=== PATIENT | female | born 1975 | race African-American/Black ===

== ENCOUNTER 2017-03-10 08:09 | Emergency (ER) | payer SELFPAY ==
[~2017-03-10 08:09] MED LIST: ALBU6.7H INH; CIPR500T2 PO; IBUP800T23 PO; LAMI250T PO; Z.0.NO CURRENT MEDS
[2017-03-10 08:12] VITALS: BP 132/87; PULSE 90; RESP 14; TEMP 98.2; O2SAT 100
[2017-03-10] MEDS ORDERED: MOME17I EACH NARE (08:44)
[2017-03-10] MEDS ORDERED: ROBA500T PO (08:44)
[2017-03-10] MEDS ORDERED: IBUP800T23 PO (08:44)
[2017-03-10] MEDS ORDERED: AMOX500C PO (08:44)
--- NOTE | 2017-03-10 08:44 | PD ---
HPI Chief Complaint: Back/ Neck Pain or Injury Time Seen by Provider: 08:41 Travel History International Travel<30 days: No Contact w/Intl Traveler<30days: No Traveled to known affect area: No History of Present Illness HPI 41-year-old female presents to the emergency Department with multiple complaints. First complaint of nasal congestion, sinus pressure 1 week. Reports bilateral ear pressure. Denies cough. Denies fever, vomiting. Second complaint is right lower tooth pain that also started about a week ago. Says the tooth cracked about a month ago. Denies facial edema or erythema. Third complaint is left lateral neck stiffness she woke with on Wednesday morning. Denies injury. Denies paresthesias, loss of sensation, decreased range of motion, decreased mental extremities. Denies headache, lightheadedness, dizziness. Has been taking Advil and Zyrtec for symptom management. Has no other medical complaints. No known allergies. No other modifying factors or associated signs and symptoms. PFSH Past Medical History Diminished Hearing: No ?: Not LMP: 02/07/17 : 8 Para: 1 Past Surgical History Gynecologic Surgery: Yes (D&C) Other Surgery: Yes (LYMPH NODE REMOVED) Social History Alcohol Use: Yes (SOCIALLY) Tobacco Use: Yes (4-6 CIGS DAILY) Substance Use: No Allergies-Medications (Allergen,Severity, Reaction): Coded Allergies: No Known Allergies (Verified , 03/10/17) Reported Meds & Prescriptions Reported Meds & Active Scripts Active Nasonex Nasal [place] (Mometasone Furoate) 50 Mcg/Act Naspr 2 [place] EACH NARE DAILY PRN Amoxicillin 500 Mg Cap 500 Mg PO BID 10 Days Ibuprofen 800 Mg Tab 800 Mg PO Q6HR PRN Robaxin (Methocarbamol) 500 Mg Tab 500 Mg PO QID PRN Review of Systems Except as stated in HPI: all other systems reviewed are Neg Physical Exam Narrative GENERAL: Well-nourished, well-developed female patient, in no acute distress; afebrile, nontoxic-appearing SKIN: Warm and dry. No rash. HEAD: Atraumatic. Normocephalic. Frontal and maxillary sinus tenderness on palpation. No facial edema or erythema. No lymphadenopathy or tenderness on palpation. EYES: Pupils equal and round at 3 mm with brisk reaction. No scleral icterus. No injection or drainage. PERRLA. ENT: Mucosa pink and moist. Oropharynx without erythema, exudates, tonsillar edema.. No uvular edema. No uvular, palatal, or tonsillar deviation. Airway patent. EARS: Bilateral pinnae and external canals appear within normal limits. Bilateral tympanic membranes without erythema, dullness or perforation. MOUTH: Mucous membranes moist, no lesions, tongue and gums appear normal. Right lower tooth #29 with large dental cavity and tenderness on palpation; surrounding gingiva is without erythema, edema, drainage, obvious abscess. NECK: Moving freely. Trachea midline. No lymphadenopathy. No midline point tenderness on palpation of the cervical spine. Active rotation greater than 45 to left and right. Reproducible tenderness to the left lateral musculature of the trapezius muscle of the neck and down to the upper shoulder area. CARDIOVASCULAR: Regular rate and rhythm. No murmur appreciated. RESPIRATORY: No accessory muscle use. Clear to auscultation. Breath sounds equal bilaterally. GASTROINTESTINAL: Abdomen soft, non-tender, nondistended. Hepatic and splenic margins not palpable. Bowel sounds are active 4 quadrants. MUSCULOSKELETAL: No obvious deformities. No clubbing. No cyanosis. No edema. NEUROLOGICAL: Awake and alert. Oriented 3. No obvious cranial nerve deficits. Motor grossly within normal limits. Normal speech. Moves all extremities. 5/5 strength to all extremities. PSYCHIATRIC: Appropriate mood and affect; insight and judgment normal. Data Data Last Documented VS Vital Signs Date Time Temp Pulse Resp B/P Pulse Ox O2 Delivery O2 Flow Rate FiO2 03/10/17 08:12 98.2 90 14 132/87 100 Orders Methocarbamol (Robaxin) (03/10/17 08:45) Ibuprofen (Motrin) (03/10/17 08:45) [facility] Medical Decision Making Medical Screen Exam Complete: Yes Emergency Medical Condition: Yes Medical Record Reviewed: Yes Differential Diagnosis Sinusitis, dentalgia, dental cavity, stiff neck Narrative Course 41-year-old female physical exam and history of present illness consistent with sinusitis, dentalgia, dental cavity, and left lateral neck stiffness. Patient is afebrile and nontoxic appearing. Ibuprofen and Robaxin administered in the ER. Amoxicillin, nasal Nasal spray, Robaxin, ibuprofen prescribed for home. Patient provided emergency dental information sheet for follow-up. Instructed patient to follow up with dentist. Patient verbalizes understanding and agreement with treatment plan. Patient is medically cleared and stable for discharge. Discussed reasons to return to the emergency department. Instructed patient to follow up with primary care provider. Patient agrees with treatment plan. The patients vital signs are stable and the patient is stable for outpatient follow-up and treatment. Patient discharged home, stable and in no acute distress. Diagnosis Primary Impression: Sinusitis Qualified Code: J32.9 - Sinusitis, unspecified chronicity, unspecified location Additional Impressions: Dentalgia Dental cavity Stiff neck Referrals: Primary Care Physician Patient Instructions: Cold Symptoms (ED), Dental Abscess (ED), Dental Caries ( ED), General Instructions, Safe Use of Cough and Cold Medicines (ED), Sinusitis (ED), Toothache (ED) Departure Forms: Tests/Procedures, Work Release Enter return to work date: Mar 11, 2017 Additional Instructions: Antibiotics as prescribed and complete full course Ibuprofen or Tylenol as instructed and as needed for fever/pain Tabn-lah-[id number] cough and cold medications as directed and as needed for symptom management Get plenty of sleep/rest Drink plenty of fluids to prevent dehydration; popsicles and Gatorade Use an air humidifier/turn off ceiling fans Follow-up with primary care provider Return immediately to the emergency department with worsening of symptoms Tylenol or ibuprofen as directed and as needed to reduce pain Robaxin as prescribed for muscle spasms Get adequate rest Ice and/or heating pad to affected area to reduce pain Avoid aggravating activity; increase activity as tolerated Follow-up with primary care provider Return to the emergency department immediately with worsening symptoms Med/Other Pt SpecificInfo: Prescription(s) given Scripts Mometasone Nasal [place] (Nasonex Nasal [place])50 Mcg/Act Naspr2 [place] EACH NARE DAILY PRN (NASAL CONGESTION) #1 BOTTLE Ref 0 Prov:Cyndi MillerP 03/10/17 Amoxicillin 500 Mg [id number] Mg PO BID 10 Days Ref 0 Prov:Cyndi MillerP 03/10/17 Ibuprofen 800 Mg [id number] Mg PO Q6HR PRN (PAIN) #30 TAB Ref 0 Prov:Cyndi MillerP 03/10/17 Methocarbamol (Robaxin)500 Mg [id number] Mg PO QID PRN (MUSCLE SPASM) #30 TAB Ref 0 Prov:Cyndi MillerP 03/10/17 Disposition: 01 DISCHARGE HOME Condition: Stable Cyndi Miller Mar 10, 2017 08:44
[2017-03-10] MEDS ORDERED: IBUPROFEN 800 MG TAB PO ONE (08:45)
[2017-03-10] MEDS ORDERED: METHOCARBAMOL 500 MG TAB PO ONE (08:45)
== END 2017-03-10 09:05 | disposition home or self-care (01) ==
LOC: NEPK 08:09
DX: J32.9 Chronic sinusitis, unspecified (principal); K02.9 Dental caries, unspecified; M43.6 Torticollis; F17.210 Nicotine dependence, cigarettes, uncomplicated; Z79.899 Other long term (current) drug therapy
CPT/HCPCS: 99284

== ENCOUNTER 2017-05-11 12:32 | Emergency (ER) | payer SELFPAY ==
[~2017-05-11] VITALS: Ht 170.2 cm; Wt 76.0 kg
[~2017-05-11 12:32] MED LIST changes: -ALBU6.7H INH; +AMOX500C PO; -CIPR500T2 PO; -LAMI250T PO; +MOME17I EACH NARE; +ROBA500T PO; -Z.0.NO CURRENT MEDS
[2017-05-11 12:33] VITALS: BP 151/89; PULSE 102; RESP 20; TEMP 98.7; O2SAT 99
== END 2017-05-11 14:20 | disposition left against medical advice (07) ==
LOC: NED 12:32
DX: R51 Headache (principal); Z53.21 Procedure and treatment not carried out due to patient leaving prior to being seen by health care provider
CPT/HCPCS: 99281

== ENCOUNTER 2017-06-15 17:28 | Emergency (ER) | payer SELFPAY ==
[~2017-06-15] VITALS: Ht 160 cm; Wt 70.0 kg
[2017-06-15 17:29] VITALS: BP 155/84; PULSE 98; RESP 15; TEMP 98.6; O2SAT 98
--- NOTE | 2017-06-15 17:48 | PD ---
HPI Chief Complaint: Oral / Dental Pain or Problem Time Seen by Provider: 17:39 Travel History International Travel<30 days: No Contact w/Intl Traveler<30days: No Traveled to known affect area: No History of Present Illness HPI 41-year-old Afro[place] female presents with caries to the #30 tooth with recent increased pain and swelling consistent with early abscess. Patient has been using [id number] partial filling some relief. Patient however states it's worse at night, and seems to be worsening over the past several days. At worst the pain is a 7 out of 10. Patient is allergic to Keflex. Patient states she tends to get yeast infections when she takes antibiotics as well. PFSH Past Medical History Diminished Hearing: No Respiratory: Yes (ASTHMA ) Immunizations Current: No ?: Not : 8 Para: 1 Past Surgical History Gynecologic Surgery: Yes (D&C) Other Surgery: Yes (LYMPH NODE REMOVED) Social History Alcohol Use: Yes (SOCIALLY) Tobacco Use: Yes (4-6 CIGS DAILY) Substance Use: No Allergies-Medications (Allergen,Severity, Reaction): Coded Allergies: cephalexin (Verified Allergy, Severe, Itching, 05/11/17) Reported Meds & Prescriptions Reported Meds & Active Scripts Active Nasonex Nasal [place] (Mometasone Furoate) 50 Mcg/Act Naspr 2 [place] EACH NARE DAILY PRN Amoxicillin 500 Mg Cap 500 Mg PO BID 10 Days Ibuprofen 800 Mg Tab 800 Mg PO Q6HR PRN Robaxin (Methocarbamol) 500 Mg Tab 500 Mg PO QID PRN Review of Systems Except as stated in HPI: all other systems reviewed are Neg General / Constitutional: No: Fever Eyes: No: Visual changes HENT: Positive: Dental Difficulties, No: Headaches, Vertigo, Lightheadedness, Sore Throat, Rhinitis, Rhinorrhea, Congestion, Nosebleed, Neck Stiffness, Neck Pain, Gingival Bleeding, Ear Discharge, Earache Cardiovascular: No: Chest Pain or Discomfort Respiratory: No: Shortness of Breath Gastrointestinal: No: Abdominal Pain Genitourinary: No: Dysuria Musculoskeletal: No: Pain Skin: No Rash Neurologic: No: Weakness Psychiatric: No: Depression Endocrine: No: Polydipsia Hematologic/Lymphatic: No: Easy Bruising Physical Exam Narrative GENERAL: Patient appears in no acute distress. SKIN: Warm and dry. Normal color. Normal turgor. No erythema. HEAD: Atraumatic. Normocephalic. Right lower jaw. EYES: Pupils equal and round. No scleral icterus. No injection or drainage. ENT: No nasal bleeding or discharge. Mucous membranes pink and moist. Patient has obvious caries to the #30 tooth. Patient has no significant obvious abscess. Pharynx is clear. Airway is patent. NECK: Trachea midline. Supple nontender. CARDIOVASCULAR: Regular rate and rhythm. RESPIRATORY: No accessory muscle use. Clear to auscultation. Breath sounds equal bilaterally. MUSCULOSKELETAL: Extremities without clubbing, cyanosis, or edema. No obvious deformities. NEUROLOGICAL: Awake and alert. No obvious cranial nerve deficits. Motor grossly within normal limits. Five out of 5 muscle strength in the arms and legs. Normal speech. PSYCHIATRIC: Appropriate mood and affect; insight and judgment normal. Data Data Last Documented VS Vital Signs Date Time Temp Pulse Resp B/P (MAP) Pulse Ox O2 Delivery O2 Flow Rate FiO2 06/15/17 17:29 98.6 98 15 155/84 (107) 98 MDM Medical Decision Making Medical Screen Exam Complete: Yes Emergency Medical Condition: Yes Differential Diagnosis Dental caries. Dental pain. Dental abscess. Narrative Course Patient is treated with Pen-Vee K 500 mg 4 times a day #40. Patient is given ibuprofen 600 mg 4 times a day #40. Patient is given acetaminophen 500 mg, 2 tablets every 6 hours when necessary # 60. Patient is given Diflucan 150 mg one weekly when necessary yeast vaginitis. Patient follow-up with local dentist as discussed Patient can return if symptoms worsen. Diagnosis Primary Impression: Dental abscess Referrals: Dentist [facility] Patient Instructions: Dental Abscess (ED), General Instructions Additional Instructions: Patient is treated with Pen-Vee K 500 mg 4 times a day #40. Patient is given ibuprofen 600 mg 4 times a day #40. Patient is given acetaminophen 500 mg, 2 tablets every 6 hours when necessary # 60. Patient is given Diflucan 150 mg one weekly when necessary yeast vaginitis. Patient follow-up with local dentist as discussed Patient can return if symptoms worsen. Med/Other Pt SpecificInfo: Prescription(s) given Disposition: DISCHARGE HOME Condition: Stable Diego Thakkar Jun 15, 2017 17:48
[2017-06-15] MEDS ORDERED: DIFL150T PO (17:50)
[2017-06-15] MEDS ORDERED: IBUP-232 PO (17:50)
[2017-06-15] MEDS ORDERED: MAPA500T13 PO (17:50)
[2017-06-15] MEDS ORDERED: PENI500T PO (17:50)
== END 2017-06-15 17:55 | disposition home or self-care (01) ==
LOC: NEPK 17:28
DX: K04.7 Periapical abscess without sinus (principal); J45.909 Unspecified asthma, uncomplicated; F17.210 Nicotine dependence, cigarettes, uncomplicated
CPT/HCPCS: 99284